=== PATIENT | female | born 1990 | race Caucasian/White ===

== ENCOUNTER 2022-01-01 16:35 | Emergency (ER) | payer OTHER | END 2022-01-01 17:34 | disposition left against medical advice (07) | LOC: ER1 16:35 | DX: R06.02 Shortness of breath (principal); R10.9 Unspecified abdominal pain; Z88.6 Allergy status to analgesic agent | CPT/HCPCS: 99281 ==

== ENCOUNTER 2022-05-13 07:28 | Outpatient (CLI) | payer OTHER | END 2022-05-13 08:47 | disposition left against medical advice (07) | LOC: GENOP 07:28 | DX: O47.03 False labor before 37 completed weeks of gestation, third trimester (principal); Z3A.34 34 weeks gestation of pregnancy | CPT/HCPCS: 81001; G0463 ==